=== PATIENT | female | born 1995 | race Caucasian/White ===

== ENCOUNTER 2017-03-11 06:24 | Observation (INO) | payer OTHER ==
[~2017-03-11] VITALS: Ht 165.1 cm; Wt 104.8 kg
[2017-03-11] MEDS ORDERED: birth control pills (06:42)
--- NOTE | 2017-03-11 07:10 | REPUSA ---
CLINICAL HISTORY: Edema. COMMENTS: Real time sonography with duplex doppler of the left lower extremity was performed with attention to the major deep venous structures. Evaluation reveals intraluminal thrombi in the left common femoral vein extending to the greater saph enous vein. IMPRESSION: Acute deep venous thrombosis in the left common femoral vein extending to the greater saphenous vein. Thank you for your kind referral of this patient.
[2017-03-11 07:56] LABS: BASO % 0.3 % (0.0-1.0); EOS # 0.2 K/mm3 (0.0-0.50); EOS % 2.1 % (0.0-3.0); LARGE UNSTAINED CELL # 0.1 K/mm3 (0.0-0.4); LARGE UNSTAINED CELL % 0.9 % (0.0-4.0); LYMPH # 2.2 K/mm3 (1.5-6.5); LYMPH % 18.1 % (24.0-44.0); MEAN CORPUSCULAR HEMOGLOBIN 30.7 pg (27.0-33.0); MEAN CORPUSCULAR HGB CONC 33.6 g/dl (32.0-36.5); MEAN CORPUSCULAR VOLUME 91.5 fl (80.0-96.0); MONO # 0.6 K/mm3 (0.0-0.8); MONO % 4.8 % (0.0-5.0); NEUTROPHILS # 8.5 K/mm3 (1.8-7.7); NEUTROPHILS % 73.8 % (36.0-66.0); PLATELET COUNT, AUTOMATED 202 k/mm3 (150-450); RED CELL DISTRIBUTION WIDTH 13.7 % (11.5-14.5); WHITE BLOOD COUNT 11.5 K/mm3 (4.0-10.0)
[2017-03-11 08:03] LABS: INR 1.05
[2017-03-11 08:27] LABS: ALBUMIN 3.9 GM/DL (3.2-5.2); ALBUMIN/GLOBULIN RATIO 1.05 (1.00-1.93); ALKALINE PHOSPHATASE 81 U/L (45-117); ALT/SGPT 28 U/L (12-78); ANION GAP 10 MEQ/L (8-16); AST/SGOT 16 U/L (15-37); BILIRUBIN,DIRECT 0.2 MG/DL (0.0-0.2); BILIRUBIN,TOTAL 0.7 MG/DL (0.2-1.0); BLOOD UREA NITROGEN 14 MG/DL (7-18); CALCIUM LEVEL 9.3 MG/DL (8.5-10.1); CARBON DIOXIDE LEVEL 23 MEQ/L (21-32); CHLORIDE LEVEL 109 MEQ/L (98-107); CREATININE FOR GFR 1.04 MG/DL (0.55-1.02); GLOMERULAR FILTRATION RATE > 60.0 (>60); GLUCOSE, FASTING 99 MG/DL (70-105); POTASSIUM SERUM 3.7 MEQ/L (3.5-5.1); SODIUM LEVEL 142 MEQ/L (136-145); TOTAL PROTEIN 7.6 GM/DL (6.4-8.2)
[2017-03-11] MEDS ORDERED: ISOVUE-370 76% 100ML VIAL (Q9967) As Ordered ONE (08:31)
--- NOTE | 2017-03-11 09:04 | REP ---
CT of the chest CT pulmonary angiography: The the patient has deep vein thrombus of the left lower extremity ultrasound study performed earlier today. There are no emboli in the pulmonary trunk. There are bilateral emboli in the distal right and left central pulmonary arteries extending into their bifurcations and into the lobar branches of the right upper lobe, lower lobe and middle lobe as well as in the left lower lobe. There are no infiltrates or effusions with the exception of a tiny subsegmental infiltrate in the deep posterior sulcus of the left lung. There is no adenopathy. Thoracic aorta is unremarkable. Cardiac size is normal. The visualized upper abdominal contents are unremarkable. Impression: Multiple bilateral central pulmonary emboli as described. Signed by James Quevedo MD 03/11/2017 08:56 A
[2017-03-11] MEDS ORDERED: ONDANSETRON 4MG/2ML VIAL (J2405) IV PRN (09:30)
[2017-03-11] MEDS ORDERED: TRIN1TAB2 PO (09:51)
[2017-03-11] MEDS ORDERED: IBUPOTC PO (09:51)
[2017-03-11 10:00] VITALS: BP 142/83
[2017-03-11] MEDS: ACETAMINOPHEN TAB 650MG DOSE (2X325MG) PO PRN ×2 (10:11→14:32)
[2017-03-11] MEDS: APIXABAN 5 MG TAB (ELIQUIS) PO SCH ×2 (10:12→20:29)
[2017-03-11] MEDS: DOCUSATE SODIUM 100 MG CAP PO SCH ×2 (10:12→20:29)
[2017-03-11 12:00] VITALS: BP 124/67
--- NOTE | 2017-03-11 12:00 | HPE ---
DATE OF ADMISSION: 03/11/2017 PRIMARY CARE PROVIDER: Lilia Holland. CODE STATUS: Full code. CHIEF COMPLAINT: Left leg pain and swelling and intermittent shortness of breath. HISTORY OF PRESENT ILLNESS: 21-year-old female with known history of menorrhagia and dysmenorrhea on oral contraception who presents to the emergency department with 24 hours of left leg pain and swelling and intermittent shortness of breath when she tries to climb a flight of stairs. She states she did have some palpitations earlier this morning and a brief episode of chest discomfort which has dissipated. She was evaluated in the emergency department by one of the [facility] and found to have a large deep vein thrombosis (DVT) of the left lower extremity and a centrally located pulmonary embolism. She is not requiring any oxygen supplementation. She denies currently any chest pain. However, we did discuss inpatient versus outpatient treatment and I think it would be beneficial to at least observe the patient overnight to make sure that she does not have any deterioration since she does have such a large clot burden. PAST MEDICAL HISTORY: Irritable bowel syndrome. PAST SURGICAL HISTORY: 1. Colonoscopy and esophagogastroduodenoscopy (EGD) unremarkable. 2. Bilateral greater toe surgeries for ingrown toenails. SOCIAL HISTORY: The patient is . She denies any tobacco use. No alcohol use. No recent travel or sick contacts. FAMILY HISTORY: There is a positive family history of an uncle with recurrent blood clots who is on lifetime anticoagulation therapy. Otherwise no other positive history of blood clots. ALLERGIES: No known drug allergies. HOME MEDICATIONS: - oral contraception daily - intermittent ibuprofen use REVIEW OF SYSTEMS: Constitutional: She denies fevers, chills or rigors. No change in appetite. HEENT: She denies headache, lightheaded, dizziness, blurry vision. No difficulty with speech or swallow. Pulmonary: She has had intermittent dyspnea on exertion with climbing a flight of stairs, but denies hemoptysis. No productive sputum or cough. She stated she felt that she was wheezing yesterday, but that has since dissipated as well. Cardiovascular: She had chest discomfort, but it was not substernal. She denies any paroxysmal nocturnal dyspnea (PND) or orthopnea. She has had left lower extremity swelling and edema. Gastrointestinal (GI): No nausea, vomiting or diarrhea. Appetite is good. Bowel movements are good. No difficulty with bowel movements. No hematochezia or melena. Genitourinary (): No dysuria, frequency or hematuria. Musculoskeletal: No bone loss or joint pain, swelling or erythema. Neurologic: No paresthesias or paralysis. No history of seizure disorder. No migraines. Endocrine: Negative for diabetes. Negative for thyroid disorder. Lymphatics: No lumps, bumps or swelling neck, axilla or groin. No weight loss. No night sweats. Hematology: No prior history of venous thromboembolism, deep vein thrombosis (DVT), bleeding or bruising disorder. Oncology: No history of cancer. Psychiatric: No history of depression or anxiety. No suicidal ideation. No audiovisual hallucination. 10-point review of systems complete, pertinent positives are listed. PHYSICAL EXAMINATION: Temperature is 96.9, pulse 91 and regular, respiratory rate is 18, blood pressure (BP) is 142/83, and SPO2 is 99% on room air. General: The patient appears to be in no acute distress. She is alert and oriented, pleasant to talk to. HEENT: Head is atraumatic, normocephalic. Eyes: Pupils equal and reactive to light and accommodation (IMAN). Throat clear. Lungs: Diminished bibasilar breath sounds, otherwise clear. No wheeze, no rhonchi. Heart: Regular rate and rhythm. Abdomen is soft, nontender, nondistended, with positive bowel sounds. No masses or rebound. Extremities: She does have quite a bit of swelling in the left leg up to the mid thigh, it is nonpitting edema. Pulses are equal. No calf tenderness noted. No significant findings for Homans' sign. LABORATORY DATA AND DIAGNOSTICS: 12-lead EKG sinus rhythm with ventricular rate of 90, no QT abnormalities, no ST abnormalities. CT angio of the chest shows multiple bilateral central pulmonary emboli. Duplex venous ultrasound of the lower extremities with acute DVT of the left common femoral vein extending to the great saphenous vein. White count 11.5, hemoglobin 13.4 and platelets are 202,000. Sodium 142, potassium 3.7, chloride 109, bicarb 23, anion gap 10, BUN is 14, creatinine 1.04, glucose 99, total and direct bilirubin 0.7 and 0.2, AST 16, ALT is 28. Troponin is less than 0.02. Albumin is 3.9. Phospholipids are pending at this time. INR is 1.05. Protein C and S, as well as, antithrombin and factor V Leiden labs are pending. Anticardiolipin labs are pending as well as Factor II mutation. IMPRESSION: Ms. Robbins is a 21-year-old female who unfortunately presents to the emergency department with 24 hours of left leg swelling and pain as well as some intermittent shortness of breath and chest discomfort. She does have positive findings on venous duplex ultrasound of the lower extremities for left leg DVT and CT angio of the chest that reveals bilateral centralized pulmonary emboli. She will need to be admitted as observation since she has a large clot burden and will start her on appropriate anticoagulation therapy. PROBLEM LIST: 1. Acute pulmonary emboli. 2. Left leg DVT. 3. History of dysmenorrhea/menorrhagia. 4. Subjective shortness of breath with chest discomfort with negative EKG and negative troponin. PLAN: The patient will be admitted to the progressive care unit (PCU) on telemetry overnight. Will observe her to make sure there are no other significant issues. She does not demonstrate any signs or symptoms that would suggest any right heart strain at this time and does not appear to require any intervention such as thrombolytics. I did have a lengthy discussion regarding different treatment options. She did elect to go with Eliquis, which we will start her on 10 mg twice a day for 7 days and then to change the dose to 5 mg twice a day. We did request a patient and family service (PFS) consult to be sure that her insurance does cover this medication. I did request that she discontinue oral contraception as well as aspirin and ibuprofen during this time period. Will treat her pain with Tylenol and Percocet for any breakthrough pain. Will see how she does overnight. For DVT prophylaxis, as indicated above she was started on Eliquis. DISPOSITION: Anticipate home discharge tomorrow. Labs are pending regarding thrombophilia workup which she can followup as an outpatient.
[2017-03-11 15:50] VITALS: BP 137/95
--- NOTE | 2017-03-11 16:07 | ECGEPIP ---
Stationary ECG Study [facility] - ED Test Date: 2017-03-11 Pat Name: CRISTINA MORE Department: Room: - Gender: F Cherry Picker Operator: CORA : [id number] Requested By: SANDRITA DODD PA-C. Order Number: [id number] Reading MD: Sami Richards Measurements Intervals [place] Rate: 90 P: 18 PA: 183 QRS: 34 QRSD: 88 T: 7 QT: 351 QTc: 430 Interpretive Statements SINUS RHYTHM NSTTW ABNORMALITIES Electronically Signed On 03-11-2017 16:07:19 EDT by Sami Richards
[2017-03-11] MEDS ORDERED: PERCOCET 5MG/325MG TAB PO PRN ×2 (18:15)
[2017-03-11] MEDS ORDERED: SLF 3 ML SYR IV PRN (19:00)
[2017-03-11] MEDS ORDERED: MORPHINE 2 MG/ML 1ML SYRINGE IV PRN (20:15)
[2017-03-11] MEDS: SLF 3 ML SYR IV SCH (20:30)
[2017-03-11] MEDS ORDERED: PERCOCET 5MG/325MG TAB PO ONE (20:30)
[2017-03-11 21:13] VITALS: BP 135/93
[2017-03-12 00:15] VITALS: BP 130/83
[2017-03-12 04:21] VITALS: BP 133/82
[2017-03-12] MEDS: SLF 3 ML SYR IV SCH (04:27)
[2017-03-12 05:51] LABS: MEAN CORPUSCULAR HGB CONC 34.8 g/dl (32.0-36.5); RED CELL DISTRIBUTION WIDTH 13.5 % (11.5-14.5)
[2017-03-12 06:10] LABS: ALBUMIN 3.3 GM/DL (3.2-5.2); ANION GAP 9 MEQ/L (8-16); BLOOD UREA NITROGEN 11 MG/DL (7-18); CALCIUM LEVEL 8.9 MG/DL (8.5-10.1); CARBON DIOXIDE LEVEL 23 MEQ/L (21-32); CHLORIDE LEVEL 107 MEQ/L (98-107); CREATININE FOR GFR 0.91 MG/DL (0.55-1.02); GLOMERULAR FILTRATION RATE > 60.0 (>60); GLUCOSE, FASTING 99 MG/DL (70-105); PHOSPHORUS LEVEL 2.8 MG/DL (2.5-4.9); POTASSIUM SERUM 3.6 MEQ/L (3.5-5.1); SODIUM LEVEL 139 MEQ/L (136-145)
[2017-03-12 07:30] VITALS: BP 134/98
[2017-03-12] MEDS: DOCUSATE SODIUM 100 MG CAP PO SCH (08:53)
[2017-03-12] MEDS: APIXABAN 5 MG TAB (ELIQUIS) PO SCH (08:54)
[2017-03-12] MEDS ORDERED: PERCOCET PO (08:57)
[2017-03-12] MEDS ORDERED: ELIQ5TAB PO (08:57)
--- NOTE | 2017-03-12 12:52 | DSES ---
DATE OF ADMISSION: 03/11/2017 DATE OF DISCHARGE: 03/12/2017 PRIMARY CARE PROVIDER: Lilia Holland. CONSULTANTS: None. PROCEDURES: None. COMPLICATIONS: None. ADMISSION/DISCHARGE DIAGNOSES: 1. Acute pulmonary emboli 2. Left leg deep vein thrombosis (DVT). 3. History of dysmenorrhea and menorrhagia. 4. Subjective shortness of breath and chest discomfort with negative EKG, negative troponin and no issues on telemetry. BRIEF HOSPITAL COURSE: This is a 21-year-old female with known history of menorrhagia and dysmenorrhea, has been on oral contraception for quite while, no recent history of travel, trauma or surgery, who presented to the emergency department after 24 hours of increasing left leg pain, swelling, intermittent shortness of breath and dyspnea on exertion while climbing stairs, and some chest discomfort. She was found on CT angio to have a central pulmonary emboli and on ultrasound of the left lower extremity to have a positive DVT. Due to her clot burden, it was felt to be more effective to admit her overnight to monitor her while we began anticoagulation therapy. Overnight, she did not demonstrate any issues. She has maintained saturating well on room air and no issues seen on telemetry. She does have an additional history of irritable bowel syndrome, has had colonoscopy and EGD, which were negative for any underlying GI cancer. A thrombophilia workup was begun on her due to have a family history of the DVT in an uncle. At any rate, she does appear to be doing well. We did start her on Eliquis which can be discharged on. She will need followup with [facility] later this week and they can check for followup on her thrombophilia studies. PHYSICAL EXAMINATION: Today, temperature is 96.5, pulse 83, respiratory rate 20, blood pressure 134/98, SPO2 is 97% on room air. GENERAL: The patient appears to be in no acute distress, is alert and oriented. HEENT: Unremarkable. LUNGS: Clear. ABDOMEN: Soft, nontender, positive bowel sounds. EXTREMITIES: The left thigh is notably larger. She does have some nonpitting edema of the left hamlin. No calf tenderness. Pulses are equal. LABORATORIES: White count 9.0, hemoglobin 11.8, platelets 188,000. Sodium 139, potassium 3.6, chloride 107, bicarb 23, anion gap 9, BUN is 11, creatinine 0.91, glucose is 99, albumin 3.3. DISCHARGE CONDITION: Good. DISPOSITION: Discharge to home. DISCHARGE MEDICATIONS: - Eliquis 10 mg twice a day for seven days then to switch to 5 mg twice a day - Percocet 5/325, #14, no refills, one every 4 hours as needed with a maximum daily dose six. She was encouraged to discontinue her ibuprofen, discontinue the oral contraception. DISCHARGE INSTRUCTIONS: Discharge to home. Activity as tolerated. Regular diet. Followup with [facility] in a week. Seek medical attention should symptoms worsen or progress. She will need to followup on her thrombophilia workup. She was advised to avoid oral contraception, tobacco use in the future. She will likely need to be on anticoagulation therapy for a minimum of six months. She voices understanding. Discharge took approximately 35 minutes.
[2017-03-18] MEDS ORDERED: APIXABAN 5 MG TAB (ELIQUIS) PO SCH (09:00)
== END 2017-03-12 11:36 | disposition home or self-care (01) ==
LOC: M ED 06:24 → M ED INP 09:27 → M PCU 15:47
PROVIDERS: ADMIT Hospitalist; ATTEND Hospitalist
DX: I26.99 Other pulmonary embolism without acute cor pulmonale (principal); I82.412 Acute embolism and thrombosis of left femoral vein; R06.02 Shortness of breath; Z79.02 Long term (current) use of antithrombotics/antiplatelets; Z79.899 Other long term (current) drug therapy; N92.0 Excessive and frequent menstruation with regular cycle; N94.6 Dysmenorrhea, unspecified
CPT/HCPCS: 36415; 71275; 80048; 80069; 80076; 81025; 81240; 81241; 84311; 85025; 85027; 85300; 85301; 85303; 85305; 85598; 85610; 85613; 85730; 86147; 93005; 93971; 94760; 96374; 99284; J2405; Q9967

== ENCOUNTER → 2018-03-19 | Outpatient (REF) | payer OTHER ==
[2018-03-19 17:33] LABS: D-DIMER QUANT 296.2 ng/ml (<500)
== END ==
LOC: M LAB REF 16:44
DX: I82.90 Acute embolism and thrombosis of unspecified vein (principal)

== ENCOUNTER 2018-06-12 11:40 | Emergency (ER) | payer OTHER ==
[2018-06-12] MEDS: METOCLOPRAMIDE INJ 10MG/2ML VIAL (J2765) IV (13:48)
[2018-06-12 13:59] LABS: BASO % 0.3 % (0.0-1.0); EOS # 0.2 10^3/uL (0.0-0.50); EOS % 1.6 % (0.0-3.0); HEMOGLOBIN 11.9 g/dl (12.0-15.5); IMMATURE GRANULOCYTE % 0.7 % (0-3.0); LYMPH # 2.2 10^3/uL (1.5-6.5); LYMPH % 18.2 % (24.0-44.0); MEAN CORPUSCULAR HEMOGLOBIN 32.7 pg (27.0-33.0); MEAN CORPUSCULAR VOLUME 93.4 fl (80.0-96.0); MONO # 0.9 10^3/uL (0.0-0.8); MONO % 7.7 % (0.0-5.0); NEUTROPHILS # 8.8 10^3/uL (1.8-7.7); NEUTROPHILS % 71.5 % (36.0-66.0); PLATELET COUNT, AUTOMATED 224 10^3/uL (150-450); RED BLOOD COUNT 3.64 10^6/uL (4.00-5.40); RED CELL DISTRIBUTION WIDTH 14.4 % (11.5-14.5); WHITE BLOOD COUNT 12.2 10^3/uL (4.0-10.0)
[2018-06-12 14:23] LABS: ANION GAP 7 MEQ/L (8-16); BLOOD UREA NITROGEN 7 MG/DL (7-18); CALCIUM LEVEL 9.8 MG/DL (8.5-10.1); CARBON DIOXIDE LEVEL 25 MEQ/L (21-32); CHLORIDE LEVEL 106 MEQ/L (98-107); GLOMERULAR FILTRATION RATE > 60.0 (>60); GLUCOSE, FASTING 90 MG/DL (70-100); POTASSIUM SERUM 3.9 MEQ/L (3.5-5.1); SODIUM LEVEL 138 MEQ/L (136-145)
== END 2018-06-12 15:02 | disposition home or self-care (01) ==
LOC: M ED 11:40
DX: O99.89 Other specified diseases and conditions complicating pregnancy, childbirth and the puerperium (principal); R51 Headache; Z3A.15 15 weeks gestation of pregnancy; Z79.899 Other long term (current) drug therapy
CPT/HCPCS: J2765

== ENCOUNTER 2018-11-03 18:41 | Emergency (ER) | payer OTHER ==
[~2018-11-03] VITALS: Ht 165.1 cm; Wt 111.5 kg
[~2018-11-03 18:41] MED LIST: ELIQ5TAB PO; FIOR1CAP2 PO; IBUPOTC PO; LOVE1INJ SC; PERCOCET PO; TRIN1TAB2 PO; birth control pills
[2018-11-03] MEDS ORDERED: ZYRTTAB8 PO (18:58)
[2018-11-03] MEDS ORDERED: QC A650T3 PO (18:58)
[2018-11-03 20:52] LABS: INFLUENZA A AMPLIFICATION POSITIVE (NEGATIVE); INFLUENZA B AMPLIFICATION NEGATIVE (NEGATIVE)
[2018-11-03 21:32] VITALS: BP 143/90
[2018-11-03] MEDS ORDERED: OSELTAMIVIR PHOSPHATE 75 MG CAP (TAMIFLU) PO ONE (22:15)
[2018-11-03] MEDS ORDERED: OSEL75CA PO (22:28)
== END 2018-11-03 22:32 | disposition home or self-care (01) ==
LOC: M ED 18:41
DX: J10.1 Influenza due to other identified influenza virus with other respiratory manifestations (principal); Z33.1 Pregnant state, incidental; Z79.899 Other long term (current) drug therapy

== ENCOUNTER 2018-11-09 23:02 | Outpatient (CLI) | payer OTHER ==
[~2018-11-09] VITALS: Ht 165.1 cm; Wt 110.1 kg
[~2018-11-09 23:02] MED LIST changes: +OSEL75CA PO; +QC A650T3 PO; +ZYRTTAB8 PO
[2018-11-09 23:25] VITALS: BP 174/100
[2018-11-09 23:27] VITALS: BP 147/89
[2018-11-09] MEDS ORDERED: LR 1,000 ML IV ONE (23:45)
[2018-11-10 00:22] LABS: HEMATOCRIT 35.8 % (36.0-47.0); MEAN CORPUSCULAR HGB CONC 33.5 g/dl (32.0-36.5); MEAN CORPUSCULAR VOLUME 95.5 fl (80.0-96.0); PLATELET COUNT, AUTOMATED 226 10^3/uL (150-450); RED BLOOD COUNT 3.75 10^6/uL (4.00-5.40); WHITE BLOOD COUNT 12.3 10^3/uL (4.0-10.0)
[2018-11-10 00:37] LABS: APPEARANCE, URINE CLEAR (CLEAR); BACTERIA, URINE AUTO 1+ (NEGATIVE); BILIRUBIN, URINE AUTO 2+ (NEGATIVE); BLOOD, URINE BLOOD NEGATIVE (NEGATIVE); COLOR, URINE AMBER (YELLOW); GLUCOSE, URINE (UA) AUTO NEGATIVE (NEGATIVE); KETONE, URINE AUTO 1+ mg/dL (NEGATIVE); LEUKOCYTE ESTERASE, URINE AUTO NEGATIVE (NEGATIVE); MUCUS, URINE SMALL (NEGATIVE); NITRITE, URINE AUTO NEGATIVE (NEGATIVE); PROTEIN, URINE AUTO 1+ mg/dL (NEGATIVE); RBC, URINE AUTO 1 /HPF (0-3); SPECIFIC GRAVITY URINE AUTO 1.025 (1.002-1.035); SQUAMOUS EPITHELIAL CELL UR AU 4 /HPF (0-6); WBC, URINE AUTO 3 /HPF (0-3)
[2018-11-10 00:45] LABS: ALT/SGPT 91 U/L (12-78); BILIRUBIN,TOTAL 2.7 MG/DL (0.2-1.0); BLOOD UREA NITROGEN 8 MG/DL (7-18); CALCIUM LEVEL 9.1 MG/DL (8.5-10.1); CARBON DIOXIDE LEVEL 24 MEQ/L (21-32); CHLORIDE LEVEL 105 MEQ/L (98-107); CREATININE FOR GFR 0.74 MG/DL (0.55-1.30); GLOMERULAR FILTRATION RATE > 60.0 (>60); GLUCOSE, FASTING 105 MG/DL (70-100); LDH LACTATE DEHYDROGENASE 192 U/L (84-246); POTASSIUM SERUM 3.8 MEQ/L (3.5-5.1); SODIUM LEVEL 139 MEQ/L (136-145); TOTAL PROTEIN 6.6 GM/DL (6.4-8.2); URIC ACID 5.7 MG/DL (2.6-6.0)
[2018-11-10 00:45] LABS: TOTAL PROTEIN,RANDOM URINE 35.8 MG/DL (0.0-12.0)
[2018-11-10 01:00] VITALS: BP 145/88
--- NOTE | 2018-11-10 02:36 | IPNPDOC ---
Text Note Date of Service The patient was seen on 11/10/18. NOTE 23 yo at 37+0 weeks presented to L&D with back and abdominal pain over the past 24 hours. It is coming and going. She denies any vaginal bleeding or leakage of fluid. She also had some vomiting today and yesterday. She recently was diagnosed with the flu and strep throat concurrently and completed a course of tamiflu and another antibiotic. She denies any fevers/chills, SOB, chest pain, or dysuria. She also denies any headaches, RUQ pain, or visual changes. Her is complicated by obesity and a history of a provoked PE (while on OCPs) and she is currently taking BID heparin. Chaperoned by L&D RN Vitals - Initial BP was with incorrect cuff and improperly taken. Repeat blood pressures were 147/89 and 145/88. Afebrile, non tachycardic. General - AAOX3, laying in bed, NAD, pleasant and conversant. Abdomen - Gravid uterus, no fundal tenderess. No epigastric or RUQ tenderness Cervix - FT/thick/high, posterior FHT tracing - Reactive NST, +accels, no decels, Cat I. Ctx on toco resolved after IV hydration. Labs: CBC - 12.3>12.0/35.8<226 BMP - 139/3.8--105/24--8/0.74<105 AST/ALT - 111/91 Urine Pr/Cr - 0.18 Patient not in labor. However, note made of elevated BPs. These appear to be her first elevations based on [facility] records review. No significant proteinuria. Liver enzymes elevated, which may be secondary to recent flu, vomiting, or antibiotic and antiviral use. Although pre eclampsia is on the differential. She has no symptoms, her pr/cr is not elevated, and BPs are mild. Nevertheless she will need to be watched closely. Plan for her to return to the clinic on [id number] in the AM for a blood pressure check. If her BP is elevated, she will rule in for GHTN at minimum and I would recommend IOL. I will be working on Fri so I will be able to evaluate her for possible IOL. She knows to return to care before Friday immediately if she experiences headaches, RUQ pain, visual changes or any other urgent concerns. She will not take her Heparin dose of Friday in case she requires IOL. All patient questions answered. DO Yunier VS,Juan, I+O VS, Juan I+O Laboratory Tests 11/10/18 00:14 Red Blood Count 3.75 L, Mean Corpuscular Volume 95.5, Mean Corpuscular Hemoglobin 32.0, Mean Corpuscular Hemoglobin Concent 33.5, Red Cell Distribution Width 15.9 H, Calcium Level 9.1, Aspartate Amino Transf (AST/SGOT) 111 H, Alanine Aminotransferase (ALT/SGPT) 91 H, Lactate Dehydrogenase 192, Alkaline Phosphatase 140 H, Total Bilirubin 2.7 H, Uric Acid 5.7, Total Protein 6.6, Albumin 3.0 L Vital Signs Date Time Temp Pulse Resp B/P (MAP) Pulse Ox O2 Delivery O2 Flow Rate FiO2 11/10/18 01:00 73 145/88 (107) 11/09/18 23:25 98.0 18 ADEBAYO RANKIN DO Nov 10, 2018 02:36
== END 2018-11-10 02:02 | disposition home or self-care (01) ==
LOC: M LDO 23:02
PROVIDERS: ATTEND Obstetrics & Gynecology
DX: O26.893 Other specified pregnancy related conditions, third trimester (principal); Z3A.37 37 weeks gestation of pregnancy; O99.213 Obesity complicating pregnancy, third trimester; Z86.718 Personal history of other venous thrombosis and embolism
CPT/HCPCS: 36415; 59025; 80053; 81001; 82247; 82565; 82570; 83615; 84156; 84450; 84460; 84550; 85027; 96374; G0378; G0463

== ENCOUNTER 2018-11-24 11:24 | Inpatient (IN) | payer OTHER ==
[2018-11-24] VITALS (7 sets, daily range): BP systolic 129–156; BP diastolic 63–97
[~2018-11-24] VITALS: Ht 165.1 cm; Wt 110.5 kg
[2018-11-24] MEDS ORDERED: LACTATED RINGER'S 1000 ML IV STA (12:52)
[2018-11-24] MEDS ORDERED: PENICILLIN G POTASSIUM IV 5 MU in D5W MINI-BAG PLUS 100 ML IV STA (12:52)
[2018-11-24 13:34] LABS: HEMOGLOBIN 12.7 g/dl (12.0-15.5); MEAN CORPUSCULAR HEMOGLOBIN 33.2 pg (27.0-33.0); MEAN CORPUSCULAR HGB CONC 35.3 g/dl (32.0-36.5); MEAN CORPUSCULAR VOLUME 94.2 fl (80.0-96.0); PLATELET COUNT, AUTOMATED 235 10^3/uL (150-450); RED BLOOD COUNT 3.82 10^6/uL (4.00-5.40)
--- NOTE | 2018-11-24 13:36 | NUR ---
Obstetrical History & Physical General Date of Admission Nov 24, 2018 at 12:58 History of Present Illness Ramiro is a 22 y/o G1 who presents today at 39+0 weeks via L/7+6 week US for planned IOL. Her is c/b history of a provoked PE (while on OCP's) in 2017 and was treated with lovenox and transitioned to heparin at 36 weeks. Last dose was last evening. This is also c/b obesity (BMI 39.5, 1lb weight gain), RH NEG (received RhoGAM at 28 weeks), chronic UTI, and recent influenza/strep infection (which she was treated and denies any persisted sx), and an elevated 1hr; difficult time tolerating 3hr; fingerstick assessments were all WNL. She also is GBS positive and has intermittent mild range BP's. Today she denies any VB, LOF, headaches, RUQ pain, visual changes, or SOB. She endorse intermittent ctx and excellent FM. 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 Past Medical History Medical History h/o provoked PE in 2017 while on OCP's, chronic UTI's, obesity, IBS Surgical History: endocopy/colonoscopy in 2017 Family History Significant Family History: No pertinent family hx Social History Marital Status: Family situation: Spouse/partner home Psychosocial History: denies * Smoker: non-smoker Alcohol: denies Drugs: denies Imunizations Tdap status: current Influenza Status: current Allergies Coded Allergies: No Known Allergies Medications Scheduled No.137/Iron/Folic Acd ( Vitamin Tablet) 1 Each Tablet, 1 TAB PO DAILY Lovenox 40mg Tylenol PRN Physical Examination Physical Examination Chaperoned L&D RN VS: Mild range BP/AF GENERAL: Alert and oriented times three. CV: RRR PUL: CTAB ABDOMEN: Gravid and non-tender to touch. FETUS: Is vertex (VTX) by sterile vaginal examination (SVE) EXTREMITIES: Trace edema. Cervix: 1/thick/-1, cephalic vtx. IBOW Laboratory Data Admission labs/BL pre-e labs pending in [facility] 11/23/18 10:53: Serology Scanned Report Hepatitis B Testing Urine Culture: Other (GBS) + Pertinent Laboratoy Data Blood Type: O NEG RBC Antibody Screen: Negative HIV: Negative Hepatitis B: Negative Hepatitis C: Unknown Rapid Plasma Reagin: Nonreactive Rubella: Immune Varicella: Non-Immune Chlamydia/Gonorrhea: Negative Group B Streptococcus: Positive (Positive in urine) Quad Screen Test: Negative Cystic Fibrosis: Negative Glucose Tolerance Test: early 1h: 141; unable to tolerate 3hr; fingersticks were WNL; 28 week 3hr: 103/178/137/107 Anatomy Ultrasound Placenta Location: Posterior Normal Anatomy: no anomalies; bilateral renal () pyelectasis Placenta Previa: No Steroid Therapy Steroid Therapy: No Vaginal Examination Dilation: 1 Effacement: 60% Station: -1 Cervical Consistency: moderate Cervical Position: Posterior Presentation: Cephalic presentation Position: Vertex (occiput) Assessment Cat I FHR. + accelerations. moderate variability Tocometer Contractions: Yes Frequency: q 1-3min Duration: less than 60 seconds Strength: palpated as mild Assessment/Plan Assessment 22 yo at 39+0 weeks gestation admission for planned IOL. In heparin window w/ h/o provoked PE in 2017. GBS + RH NEG. CAT I FHR. 60ml intracervical balloon catheter placed for cervical ripening will follow with oxytocin IOL per titration protocol. PCN for GBS prophylaxis will be started when oxytocin IOL is started. Plan Admit to L&D for IOL IV fluids. She is GBS positive, will start PCN when oxytocin IOL is started Baseline tox labs ordered for mid range BP's Cephalic presenting confirmed via SCE. Consented for vaginal delivery and repair as needed. All patient and questions answered.
[2018-11-24] MEDS ORDERED: HEPA10004 SQ (13:38)
[2018-11-24] MEDS ORDERED: MAPA500T2 PO (13:38)
[2018-11-24 14:09] LABS: ALT/SGPT 24 U/L (12-78); BILIRUBIN,TOTAL 0.8 MG/DL (0.2-1.0); CREATININE FOR GFR 0.74 MG/DL (0.55-1.30); GLOMERULAR FILTRATION RATE > 60.0 (>60); LDH LACTATE DEHYDROGENASE 162 U/L (84-246); URIC ACID 5.5 MG/DL (2.6-6.0)
[2018-11-24] MEDS: LR 1,000 ML IV SCH (14:49)
[2018-11-24 14:57] LABS: TOTAL PROTEIN,RANDOM URINE 37.5 MG/DL (0.0-12.0)
[2018-11-24] MEDS ORDERED: PENICILLIN G POTASSIUM IV 2.5 MU in APPROPRIATE DILUENT 1 EA IV SCH (17:00)
--- NOTE | 2018-11-24 19:01 | NUR ---
Date of Service The patient was seen on 11/24/18. L&D Intrapartum Progress Note: S: Ramiro is a 22 yo G1 recent admission for h/o provoked PE in heparin window. also c/b obesity, RH NEG, GBS pos, VZ non-immune and recent treatment for influenza and strep throat. She reports increased discomfort with uterine ctx since FB placement at 1300. O: VS-BP is mild range mostly 140s/80s-90s; afebrile General - AOX3, laying in bed, NAD PUL: CTAB CV: RRR Abdomen - Gravid uterus, no fundal tenderness, no RUQ pain to palpation Extremities - 1+ edema, +2 DTR's, NEG clons FHR: Cat I tracing with moderate variability, +accels BL Tox labs: Plts - 233 AST/ALT - 14/24 SPOT-0.2 A/P: Ramiro is a 22 y/o G1. IOL for h/o provoked PE in heparin window and obesity. Latent phase labor w/ 60ml intracervical balloon catheter patent. CAT 1 FHR. Increasing discomfort with u/a. Will initiate oxytocin IOL once balloon catheter is out.
[2018-11-24] MEDS ORDERED: **PENDING PCN ENTRY XX SCH (21:00)
[2018-11-24] MEDS: miSOPROStol 50 MCG 1/2 TAB (S0191) PO SCH (22:13)
[2018-11-25] VITALS (49 sets, daily range): BP systolic 96–201; BP diastolic 51–99
[2018-11-25] MEDS: miSOPROStol 50 MCG 1/2 TAB (S0191) PO SCH (02:34)
[2018-11-25] MEDS ORDERED: PENICILLIN G POTASSIUM IV 5 MU in D5W MINI-BAG PLUS 100 ML IV STA (04:15)
[2018-11-25] MEDS ORDERED: PENICILLIN G POTASSIUM 5 MU VIAL As Ordered ONE (04:19)
[2018-11-25] MEDS ORDERED: OXYTOCIN DRIP 30 UNITS in APPROPRIATE DILUENT 1 EA IV SCH ×2 (05:30→08:45)
--- NOTE | 2018-11-25 06:43 | IPNPDOC ---
Text Note Date of Service The patient was seen on 11/25/18. NOTE Intrapartum Note Ramiro is a 23yo with SIUP at 39w1d undergoing IOL in heparin window. She had a provoked PE while on OCPs in 2017 and during this was treated with lovenox then transitioned to heparin at 36 weeks. Last dose was evening of 11/23. Other complications include obesity (BMI 39.5, 1lb weight gain), Rh negative (received RhoGAM at 28 weeks), chronic UTI, and recent influenza/strep infection (she received tx and denies any persistent sx), and elevated 1hr with difficult time tolerating 3hr, but fingerstick assessments were all wnl. She is GBS positive and had intermittent mild range BP's on admission with normal PIH labs (prot:creat 0.2) and no sx of pre-E. IOL was started yesterday with cervical lubin bulb which came out at 04:00 this morning. She received 2 doses of oral cytotec. Pitocin was written for and will be started soon. Currently, patient is comfortable and she has slept on and off throughout the night. Vitals: bp normotensive to mild range, afebrile FHRT Cat I with +accels, -decels, mod stefani Ceres: ctx difficult to excelsior picker Plan is to start pitocin and titrate per protocol PCN started at 04:26 for GBS positive status Will continue to closely observe Safe to proceed Dr. Claribel Nichole MD A-FIB/CHADSVASC A-FIB History Current/History of A-Fib/PAF?: No Current Oral Anticoagulant The: No VS,Fishbone, I+O VS, Fishbone, I+O Laboratory Tests 11/24/18 13:09 Red Blood Count 3.82 L, Mean Corpuscular Volume 94.2, Mean Corpuscular Hemoglobin 33.2 H, Mean Corpuscular Hemoglobin Concent 35.3, Red Cell Distribution Width 15.1 H, Aspartate Amino Transf (AST/SGOT) 14, Alanine Aminotransferase (ALT/SGPT) 24, Lactate Dehydrogenase 162, Total Bilirubin 0.8, Uric Acid 5.5 Vital Signs Date Time Temp Pulse Resp B/P (MAP) Pulse Ox O2 Delivery O2 Flow Rate FiO2 11/24/18 18:31 97.9 96 18 140/91 (107) I&O- Last 24 Hours up to 6 AM 11/25/18 06:00 Intake Total 2520 ml Output Total 1100 ml Balance 1420 ml Claribel Nichole MD November 25, 2018 06:42
[2018-11-25] MEDS: LR 1,000 ML IV SCH ×3 (08:17→18:22)
--- NOTE | 2018-11-25 08:22 | IPNPDOC ---
Text Note Date of Service The patient was seen on 11/25/18. NOTE SBAR fom Dr Nichole 730. IOL in a heparin window, h/o provoked PE, now on GBS prophylaxis and s/p Cook balloon out 4 hrs ago, last miso 5-6 hrs ago Cx /-2/vtx well applied Start pitocin, cont GBS prophy until delivered Recheck noonish Sessions A-FIB/AIYANA A-FIB History Current/History of A-Fib/PAF?: No Current Oral Anticoagulant The: No VS,Fishbone, I+O VS, Fishbone, I+O Laboratory Tests 11/24/18 13:09 Red Blood Count 3.82 L, Mean Corpuscular Volume 94.2, Mean Corpuscular Hemoglobin 33.2 H, Mean Corpuscular Hemoglobin Concent 35.3, Red Cell Dis tribution Width 15.1 H, Aspartate Amino Transf (AST/SGOT) 14, Alanine Aminotransferase (ALT/SGPT) 24, Lactate Dehydrogenase 162, Total Bilirubin 0.8, Uric Acid 5.5 Vital Signs Date Time Temp Pulse Resp B/P (MAP) Pulse Ox O2 Delivery O2 Flow Rate FiO2 11/25/18 06:36 85 18 98/60 (73) 11/25/18 05:36 98.2 I&O- Last 24 Hours up to 6 AM 11/25/18 05:59 Intake Total 2520 ml Output Total 1100 ml Balance 1420 ml SESSIONS,JANNETH Garcia MD November 25, 2018 08:22
[2018-11-25] MEDS: PENICILLIN G POTASSIUM IV 2.5 MU in APPROPRIATE DILUENT 1 EA IV SCH ×4 (08:27→20:39)
[2018-11-25] MEDS ORDERED: LR 1,000 ML IV SCH (08:33)
--- NOTE | 2018-11-25 12:23 | IPNPDOC ---
Text Note Date of Service The patient was seen on 11/25/18. NOTE NST Cat 1, on pitocin, reg ctx's but not feeling them a lot yet, pain has incr eased slightly Cx /-2/vtx now well applied Recheck in 3-4 hrs, sooner prn Sessions A-FIB/AIYANA A-FIB History Current/History of A-Fib/PAF?: No Current Oral Anticoagulant The: No VS,Fishbone, I+O VS, Fishbone, I+O Laboratory Tests 11/24/18 13:09 Red Blood Count 3.82 L, Mean Corpuscular Volume 94.2, Mean Corpuscular Hemoglobin 33.2 H, Mean Corpuscular Hemoglobin Concent 35.3, Red Cell Distribution Width 15.1 H, Aspartate Amino Transf (AST/SGOT) 14, Alanine Aminotransferase (ALT/SGPT) 24, Lactate Dehydrogenase 162, Total Bilirubin 0.8, Uric Acid 5.5 Vital Signs Date Time Temp Pulse Resp B/P (MAP) Pulse Ox O2 Delivery O2 Flow Rate FiO2 11/25/18 06:36 85 18 98/60 (73) 11/25/18 05:36 98.2 I&O- Last 24 Hours up to 6 AM 11/25/18 06:00 Intake Total 2520 ml Output Total 1100 ml Balance 1420 ml SESSIONS,JANNETH Garcia MD November 25, 2018 12:23
--- NOTE | 2018-11-25 17:11 | IPNPDOC ---
Text Note Date of Service The patient was seen on 11/25/18. NOTE Pit at 18 mu/min Pain controlled, not feeling much NST mostly Cat 1 with mod stefani and accels, reg ctx's Cx unchanged, AROM with clr fluid, IUPC placed to determine MVU's SBAR to Dr Terrell in 2 hrs Sessions A-FIB/AIYANA A-FIB History Current/History of A-Fib/PAF?: No Current Oral Anticoagulant The: No VS,Fishbone, I+O VS, Fishbone, I+O Vital Signs Date Time Temp Pulse Resp B/P (MAP) Pulse Ox O2 Delivery O2 Flow Rate FiO2 11/25/18 13:30 86 18 136/80 (98) 11/25/18 11:00 97.9 I&O- Last 24 Hours up to 6 AM 11/25/18 06:00 Intake Total 2520 ml Output Total 1100 ml Balance 1420 ml SESSIONS,JANNETH Garcia MD November 25, 2018 17:11
[2018-11-25] MEDS ORDERED: FENTANYL 2MCG/ML ROPIVACAINE 0.2% IN 0.9% NACL 100ML IVBAG As Ordered ONE (19:12)
[2018-11-25] MEDS ORDERED: REFRIGERATOR IV KEYS XX PRN (22:30)
[2018-11-25] MEDS ORDERED: NALOXONE INJ 0.4 MG/1 ML VIAL (J2310) IV PRN (22:30)
[2018-11-25] MEDS ORDERED: ONDANSETRON 4MG/2ML VIAL (J2405) IV PRN (22:30)
[2018-11-25] MEDS ORDERED: EPIDURAL COMMENT XX SCH (22:30)
[2018-11-25] MEDS ORDERED: FENTANYL/ROPIVACAINE/NACL BAG 100 ML EPIDURAL SCH (22:30)
[2018-11-25] MEDS ORDERED: diphenhydrAMINE INJ 50MG/ML VIAL (J1200) IV PRN (22:30)
[2018-11-25] MEDS ORDERED: EPIDURAL/PCA KEYS XX PRN (22:30)
[2018-11-25] MEDS ORDERED: LACTATED RINGER'S 1000 ML IV PRN (22:30)
[2018-11-25] MEDS: ePHEDrine SULFATE 25 MG/5 ML(5MG/ML) SYRINGE IV PRN ×3 (22:35→22:42)
[2018-11-26] VITALS (30 sets, daily range): BP systolic 94–149; BP diastolic 54–89
[2018-11-26] MEDS: PENICILLIN G POTASSIUM IV 2.5 MU in APPROPRIATE DILUENT 1 EA IV SCH ×2 (01:05→04:28)
--- NOTE | 2018-11-26 06:21 | NUR ---
0600 assessment had d/c Pitocin due to late decelerations had resuscitation and now category 1 strip, moderate contractions has made progress now thick anterior lip contractions fall off will start Pitocin to enhance contractions, Safe to proceed
--- NOTE | 2018-11-26 08:06 | IPNPDOC ---
Text Note Date of Service The patient was seen on 11/26/18. NOTE SBAR from Dr Terrell at 730 Pit at 4 mu/min FHT Cat 2 with a few isolated late decels, mod stefani however and accels with check just now, Ctx's q 4-5 Cx C/C/+2/BEVERLY Start pushing, incr pit as long as lates do not recur to incr ctx freq Sessions A-FIB/AIYANA A-FIB History Current/History of A-Fib/PAF?: No Current Oral Anticoagulant The: No VS,Fishbone, I+O VS, Fishbone, I+O Vital Signs Date Time Temp Pulse Resp B/P (MAP) Pulse Ox O2 Delivery O2 Flow Rate FiO2 11/26/18 06:13 79 105/59 (74) 11/26/18 04:27 97.8 11/25/18 18:30 18 I&O- Last 24 Hours up to 6 AM 11/26/18 06:00 Intake Total 5770 ml Output Total 2570 ml Balance 3200 ml SESSIONS,JANNETH Garcia MD November 26, 2018 08:06
[2018-11-26] MEDS ORDERED: OXYTOCIN DRIP 30 UNITS in APPROPRIATE DILUENT 1 EA IV SCH (09:48)
[2018-11-26] MEDS ORDERED: LR 1,000 ML IV SCH (10:00)
[2018-11-26] MEDS ORDERED: DIBUCAINE 1% OINTMENT 30GM TOP PRN (10:00)
[2018-11-26] MEDS ORDERED: miSOPROStol 200 MCG TAB (S0191) PR ONE (10:00)
[2018-11-26] MEDS ORDERED: METOCLOPRAMIDE INJ 10MG/2ML VIAL (J2765) IV PRN (10:00)
[2018-11-26] MEDS ORDERED: MEASLES,MUMPS,RUBELLA VACCINE INJ (MMR-II) (90707) SC SCH (10:00)
[2018-11-26] MEDS ORDERED: RHOGAM 300 MCG (1500 IU) INJ (J2790) IM SCH (10:00)
[2018-11-26] MEDS ORDERED: LIDOCAINE 1% MDV 20ML VIAL INFIL ONE (10:00)
--- NOTE | 2018-11-26 10:01 | DNPDOC ---
[facility] Delivery Note Delivery Note DATE OF DELIVERY: [id number] PREDELIVERY DIAGNOSIS: 39 2/7 weeks' gestation and labor. POST DELIVERY DIAGNOSIS: Delivered. PROCEDURE: Spontaneous vaginal delivery [facility] ATTENDANT: Dr. Damico ANESTHESIA: epidural ESTIMATED BLOOD LOSS: 200 mL. FINDINGS: 7 pound 4 ounce male , Score 9/9 DELIVERY SUMMARY: Great effort. No delay of the vtx or either shoulder, del'd BEVERLY then rest'd to LOT. Vigorous infant to abd. Cord C/C by FOB. Cord blood. Placenta del'd intact. Fundus firm, pit going 999. 1st degr lac repaired with 3-0 vicryl which needed 1% lido bath alf through repair, no other lacs anywhere. Good cosmesis/hemostasis. 600 mcg cytotec placed ND due to long IOL. Uncomplicated. Chris DAMICO,JANNETH Garcia MD November 26, 2018 10:01
[2018-11-26] MEDS: PRENATAL VITAMINS CHEWABLE TABLET PO SCH (10:20)
[2018-11-26] MEDS: IBUPROFEN 800 MG TAB PO PRN ×2 (10:20→19:54)
[2018-11-26] MEDS: DOCUSATE SODIUM 100 MG CAP PO SCH ×2 (10:20→21:00)
[2018-11-26] MEDS ORDERED: ENOXAPARIN 40 MG/0.4 ML SYRINGE (J1650) SC ONE (16:00)
[2018-11-27] MEDS: IBUPROFEN 800 MG TAB PO PRN ×2 (04:57→19:01)
[2018-11-27 05:49] VITALS: BP 131/85
--- NOTE | 2018-11-27 07:28 | IPNPDOC ---
Progress Note Date of Service: November 27, 2018 Progress Note Ms. Robbins is a 23 yo G1 now P1 who underwent an uncomplicated yesterday (23Nov2018) morning after being admitted for an IOL in her heparin window due to a history of saddle PE. She is currently recovering on the graham. She was restarted on Lovenox . Ms. Robbins reports feeling well this AM. She was able to get some rest last night. She has ambulated to the restroom and voided without issues. She is tolerating a regular diet and has minimal lochia. She endorses some cramping but it is not too bad. Vitals - VSS, normotensive, afebrile, non tachycardic General - AAOX3, sitting up in bed, NAD Abdomen - Fundus firm at U-2. No fundal tenderness Extremities - No edema Ramiro is doing well and is making an appropriate recovery. Continue to encourage ambulation and today. Continue routine care. Continue Lovenox while inpatient and then continue upon discharge home for 6 weeks . Anticipate discharge home tomorrow. Adebayo Faye DO VS, I&O, 24H, Fishbone Vital Signs/I&O Vital Signs Date Time Temp Pulse Resp B/P (MAP) Pulse Ox O2 Delivery O2 Flow Rate FiO2 11/27/18 05:49 97.4 79 19 131/85 (100) I&O- Last 24 Hours up to 6 AM 11/27/18 06:00 Intake Total 772.8 ml Output Total 800 ml Balance -27.2 ml ADEBAYO FAYE DO November 27, 2018 07:28
[2018-11-27] MEDS: DOCUSATE SODIUM 100 MG CAP PO SCH ×2 (08:56→21:00)
[2018-11-27] MEDS: PRENATAL VITAMINS CHEWABLE TABLET PO SCH (08:56)
[2018-11-27] MEDS: ACETAMINOPHEN TAB 650MG DOSE (2X325MG) PO PRN (10:43)
[2018-11-27 18:00] VITALS: BP 139/88
[2018-11-28] MEDS: IBUPROFEN 800 MG TAB PO PRN (02:39)
[2018-11-28 06:00] VITALS: BP 131/81
--- NOTE | 2018-11-28 08:52 | DS.PDOC ---
Discharge Summary General Date of Admission Nov 24, 2018 at 11:24 Date of Discharge [id number] Discharge Summary ADMITTING DIAGNOSES: Induction of labor DISCHARGE DIAGNOSES: Same, HOSPITAL COURSE: Admitted and induction/delivery uncomplicated, . course uncomplicated. DISCHARGE MEDICATIONS: Motrin, Lanolin DISCHARGE INSTRUCTIONS: Nothing in the vagina for 6 weeks. F/U in OBGYN clinic in 6-8 weeks. Sessions Vital Signs/I&Os Vital Signs Date Time Temp Pulse Resp B/P (MAP) Pulse Ox O2 Delivery O2 Flow Rate FiO2 11/28/18 06:00 98.5 80 18 131/81 (98) Discharge Medications Scheduled Heparin Sodium,Porcine/Pf (Heparin Sod 5,000 Unit/0.5 ml) 5,000 Unit/0.5 Ml Cartridge, 5,000 UNIT SQ BID, (Reported) Oseltamivir Phosphate (Tamiflu) 75 Mg Capsule, 1 CAP PO BID Scheduled PRN Acetaminophen (Mapap) 500 Mg Tablet, 650 MG PO Q6-8HP PRN for HEADACHE OR PAIN, (Reported) Allergies Coded Allergies: Grape (Verified Adverse Reaction, Mild, GRAPE KOOLADE, 11/25/18) SESSIONSJANNETH MD November 28, 2018 08:52
--- NOTE | 2018-11-28 08:56 | IPNPDOC ---
Text Note Date of Service The patient was seen on 11/28/18. NOTE PPD2 States feeling well, pain controlled with prescribed meds. Baby bonding and feeding well. No heavy VB. Lochia slowing. Ambulatory. Tolerating PO without issues. Voiding spont. No CP/LP/SOB. VSSAF NAD A&O LE no C/C/E Ut at U-2, firm a/p: Doing well. Cont routine care. For some reason Lovenox not given yesterday, will get her daily dose now. D/C today. Sessions A-FIB/AIYANA A-FIB History Current/History of A-Fib/PAF?: No VS,Fishbone, I+O VS, Fishbone, I+O Vital Signs Date Time Temp Pulse Resp B/P (MAP) Pulse Ox O2 Delivery O2 Flow Rate FiO2 11/28/18 06:00 98.5 80 18 131/81 (98) SESSIONS,JANNETH Garcia MD November 28, 2018 08:56
[2018-11-28] MEDS: DOCUSATE SODIUM 100 MG CAP PO SCH (09:00)
[2018-11-28] MEDS ORDERED: ENOXAPARIN 40 MG/0.4 ML SYRINGE (J1650) SC ONE (09:00)
[2018-11-28] MEDS ORDERED: ACET1TAB55 PO (09:02)
[2018-11-28] MEDS ORDERED: PRENCHW PO (09:02)
[2018-11-28] MEDS ORDERED: IBUP80TA PO (09:02)
[2018-11-28] MEDS: PRENATAL VITAMINS CHEWABLE TABLET PO SCH (10:26)
[2018-11-28] MEDS: ACETAMINOPHEN TAB 650MG DOSE (2X325MG) PO PRN (10:27)
== END 2018-11-28 11:54 | disposition home or self-care (01) | DRG 807 ==
LOC: M LDI 11:24 → M OBS 11-26 11:52
PROVIDERS: ADMIT Advanced Practice Midwife; ATTEND Obstetrics & Gynecology
PROC: 3E033VJ Introduction of Other Hormone into Peripheral Vein, Percutaneous Approach (ICD-10-PCS; 2018-11-24)
PROC: 10907ZC Drainage of Amniotic Fluid, Therapeutic from Products of Conception, Via Natural or Artificial Opening (ICD-10-PCS; 2018-11-25)
PROC: 10E0XZZ Delivery of Products of Conception, External Approach (ICD-10-PCS; principal; 2018-11-26)
PROC: 0HQ9XZZ Repair Perineum Skin, External Approach (ICD-10-PCS; 2018-11-26)
DX: O99.89 Other specified diseases and conditions complicating pregnancy, childbirth and the puerperium (principal); Z37.0 Single live birth; Z86.711 Personal history of pulmonary embolism; O99.214 Obesity complicating childbirth; E66.9 Obesity, unspecified; O99.824 Streptococcus B carrier state complicating childbirth; Z79.01 Long term (current) use of anticoagulants; O70.0 First degree perineal laceration during delivery; Z3A.39 39 weeks gestation of pregnancy